=== PATIENT | female | born 1975 | race Caucasian/White ===

== ENCOUNTER 2024-07-24 21:23 | Emergency (ER) | payer MEDICAID ==
[~2024-07-24] VITALS: Ht 162.6 cm; Wt 120.5 kg
[2024-07-24 21:30] VITALS: BP 123/53; PULSE 111; TEMP 99.2; O2SAT 97
[2024-07-24 22:34] LABS: BASOPHILS # (AUTO) 0.1 X10'3 (0-0.2); BASOPHILS % (AUTO) 0.5 % (0-1); EOSINOPHILS # (AUTO) 0.1 X10'3 (0-0.9); EOSINOPHILS % (AUTO) 0.8 % (0-6); HEMATOCRIT 38.1 % (35.0-45.0); HEMOGLOBIN 13.2 g/dl (12.0-16.0); LYMPHOCYTES # (AUTO) 1.5 X10'3 (1.1-4.8); LYMPHOCYTES % (AUTO) 14.3 % (21-51); MEAN CORPUSCULAR HEMOGLOBIN 29.2 PG (27.0-31.0); MEAN CORPUSCULAR HGB CONC 34.5 g/dL (33.0-36.5); MEAN CORPUSCULAR VOLUME 84.7 FL (78-98); MEAN PLATELET VOLUME 7.7 FL (7.4-10.4); MONOCYTES # (AUTO) 0.7 X10'3 (0-0.9); MONOCYTES % (AUTO) 6.4 % (2-12); NEUTROPHILS # (AUTO) 8.4 X10'3 (1.8-7.7); PLATELET COUNT 319 X10'3 (140-440); RED CELL DISTRIBUTION WIDTH 14.8 % (11.5-14.5); WHITE BLOOD COUNT 10.8 X10'3 (4.5-11.0)
[2024-07-24] MEDS ORDERED: CLIN300C71 PO (22:45)
[2024-07-24 22:48] LABS: ALANINE AMINOTRANSFERASE 65 U/L (12-78); ALBUMIN 3.4 G/DL (3.4-5.0); ALBUMIN/GLOBULIN RATIO 0.7 (1.1-1.5); ALKALINE PHOSPHATASE 78 IU/L (46-116); ANION GAP 7 (8-16); ASPARTATE AMINO TRANSFERASE 38 U/L (10-37); BILIRUBIN,TOTAL 2.5 MG/DL (0.1-1.0); BLOOD UREA NITROGEN 7 MG/DL (7-18); BUN/CREATININE RATIO 9.1 (10.0-20.0); CALCIUM 8.9 MG/DL (8.5-10.1); CHLORIDE 102 MMOL/L (99-107); CREATININE 0.77 MG/DL (0.40-0.90); GLUCOSE 93 MG/DL (70-104); SODIUM 140 MMOL/L (135-145); TOTAL CARBON DIOXIDE 31.4 MMOL/L (24-32); eCRCL 79 ML/MIN; eGFR 81 ML/MIN
[2024-07-24 22:56] VITALS: RESP 18
[2024-07-24] MEDS: HYDROcodone/acetaminophen 5mg/325mg tablet PO ONE (22:56)
[2024-07-24 22:57] LABS: POTASSIUM 2.8 MMOL/L (3.5-5.1)
[2024-07-24] MEDS: CefTRIAXone 1000mg IM Kit (w/lidocaine diluent) IM ONE (22:57)
[2024-07-24] MEDS: mupirocin 2% ointment 22GM TP STA (22:58)
[2024-07-24] MEDS: dexamethasone sod phosphate 10mg/ml inj PO STA (22:59)
== END 2024-07-24 23:14 | disposition home or self-care (01) ==
LOC: ER 21:24
DX: L03.211 Cellulitis of face (principal); Z88.0 Allergy status to penicillin
CPT/HCPCS: 36415; 80053; 85025; 96372; 99284; J0696; J1100